=== PATIENT | male | born 1995 | race Caucasian/White ===

== ENCOUNTER 2023-02-27 23:46 | Emergency (ER) | payer MEDICAID ==
[~2023-02-27] VITALS: Ht 167.6 cm; Wt 70.0 kg
[2023-02-27 23:55] VITALS: BP 127/80; PULSE 84; RESP 18; TEMP 98.4; O2SAT 99
[2023-02-28] MEDS ORDERED: IBUPROFEN 600MG TABLET PO ONE (00:15)
[2023-02-28] MEDS ORDERED: IBUP-2029 MT (00:17)
== END 2023-02-28 00:29 | disposition home or self-care (01) ==
LOC: ER 23:46
DX: M79.10 Myalgia, unspecified site (principal); F15.10 Other stimulant abuse, uncomplicated
CPT/HCPCS: 93005; 99283